=== PATIENT | male | born 1985 | race Caucasian/White ===

== ENCOUNTER 2022-09-01 16:46 | Inpatient (IN) | payer BC ==
[2022-09-01 17:34] VITALS: BMI 19.3
[2022-09-01] MEDS ORDERED: METHOCARBAMOL 500 MG TABLET PO PRN (22:01)
[2022-09-01] MEDS ORDERED: ONDANSETRON *ODT* 4 MG TABLET SL PRN (22:01)
[2022-09-01] MEDS ORDERED: DICYCLOMINE HCL 10 MG CAPSULE PO PRN (22:01)
[2022-09-01] MEDS ORDERED: ACETAMINOPHEN 325 MG TABLET (FP) PO PRN ×2 (22:01)
[2022-09-01] MEDS ORDERED: LOPERAMIDE HCL 2 MG CAPSULE PO PRN (22:01)
[2022-09-01] MEDS ORDERED: BENZONATATE 200 MG CAPSULE PO PRN (22:01)
[2022-09-01] MEDS ORDERED: guaiFENesin 600 MG TABLET.ER (FP) PO PRN (22:01)
[2022-09-01] MEDS ORDERED: MAG HYDROX/AL HYDROX/SIMETH 30 ML UNIT-DOSE CUP PO PRN (22:01)
[2022-09-01] MEDS ORDERED: hydrOXYzine PAMOATE 25 MG CAPSULE (FP) PO PRN (22:01)
[2022-09-01] MEDS ORDERED: NALOXONE HCL (KLOXXADO) 8 MG SPRAY NS PRN (22:01)
[2022-09-01] MEDS ORDERED: POLYETHYLENE GLYCOL (HEALTHYLAX) 3350 17 GM PACKET PO PRN (22:01)
[2022-09-01] MEDS ORDERED: NALOXONE HCL 0.4 MG/ML VIAL IM PRN (22:01)
[2022-09-01] MEDS ORDERED: IBUPROFEN 400 MG TABLET (FP) PO PRN (22:01)
[2022-09-01] MEDS ORDERED: BISMUTH SUBSALICYLATE 524 MG/30 ML PO PRN (22:01)
[2022-09-01] MEDS ORDERED: BENZOCAINE/MENTHOL (CHLORASEPTIC ) LOZENGE MM PRN (22:01)
[2022-09-01] MEDS ORDERED: P-EPHED 60MG/TRIPROLIDI 2.5MG TABLET PO PRN (22:01)
[2022-09-01] MEDS ORDERED: IBUPROFEN 600 MG TABLET (FP) PO PRN (22:01)
[2022-09-01] MEDS ORDERED: MAGNESIUM HYDROX 2400MG/30ML ORAL SUSPENSION 30 ML CUP PO PRN (22:01)
[2022-09-01] MEDS ORDERED: chlordiazePOXIDE HCL 25 MG CAPSULE PO PRN (22:04)
[2022-09-01] MEDS ORDERED: levETIRAcetam 500 MG TABLET (FP) PO ONE (22:11)
[2022-09-01] MEDS: levETIRAcetam 500 MG TABLET (FP) PO SCH (22:14)
[2022-09-01] MEDS: chlordiazePOXIDE HCL 25 MG CAPSULE PO SCH (22:45)
[2022-09-02] MEDS: chlordiazePOXIDE HCL 25 MG CAPSULE PO SCH ×2 (05:22→10:12)
[2022-09-02] MEDS ORDERED: FOLIC ACID 1 MG TABLET (FP) PO SCH (10:00)
[2022-09-02] MEDS ORDERED: NAPROXEN 500 MG TABLET PO SCH (10:00)
[2022-09-02] MEDS: PRENATAL VITAMINS W/ FOLIC ACID TABLET (FP) PO SCH (10:12)
[2022-09-02] MEDS: levETIRAcetam 500 MG TABLET (FP) PO SCH ×2 (10:14→21:59)
[2022-09-02] MEDS: NICOTINE POLACRILEX 2 MG GUM BUC PRN ×4 (10:17→18:30)
[2022-09-02 12:31] LABS: HEMATOCRIT 37.5 % (35.4-49); HEMOGLOBIN 13.1 GM/dL (11.7-16.9); MCH 30.9 pg (25.7-33.7); MCHC 34.8 g/dl (32.0-35.9); MEAN CELL VOLUME 88.7 fl (80-96); MEAN PLT VOLUME 9.5 fl (7.5-11.1); PLATELET COUNT 163 10^3/uL (134-434); RBC 4.23 M/mm3 (4.00-5.60); RDW 14.2 % (11.9-15.9); WHITE BLOOD COUNT 3.3 K/mm3 (4.0-10.0)
[2022-09-02 13:20] LABS: POTASSIUM 3.9 mmol/L (3.5-5.1)
[2022-09-02 13:48] LABS: ALBUMIN 3.9 g/dl (3.4-5.0); BLOOD UREA NITROGEN 16.1 mg/dL (7-18)
[2022-09-02 13:52] LABS: CREATININE 0.7 mg/dL (0.55-1.3)
[2022-09-02 13:53] LABS: BILIRUBIN,TOTAL 1.6 mg/dL (0.2-1); TOT PROT 6.5 g/dl (6.4-8.2)
[2022-09-02] MEDS: diazePAM 5 MG TABLET PO SCH ×2 (17:16→22:01)
[2022-09-02] MEDS: THIAMINE HCL 100 MG TABLET (FP) PO SCH (22:00)
[2022-09-02] MEDS ORDERED: MELATONIN 5 MG TABLETS PO SCH (22:00)
[2022-09-02] MEDS: diphenhydrAMINE HCL 25 MG CAPSULE (FP) PO PRN (22:02)
[2022-09-03] MEDS ORDERED: chlordiazePOXIDE HCL 25 MG CAPSULE PO SCH (05:00)
[2022-09-03] MEDS: diazePAM 5 MG TABLET PO ONE (05:24)
[2022-09-03] MEDS: diazePAM 5 MG TABLET PO SCH ×4 (05:34→22:14)
[2022-09-03] MEDS: levETIRAcetam 500 MG TABLET (FP) PO SCH ×3 (10:11→22:15)
[2022-09-03] MEDS: PRENATAL VITAMINS W/ FOLIC ACID TABLET (FP) PO SCH (10:11)
[2022-09-03] MEDS: NICOTINE POLACRILEX 2 MG GUM BUC PRN (10:52)
[2022-09-03] MEDS: NICOTINE 14 MG/24 HOURS TOPICAL PATCH TD SCH (11:44)
[2022-09-03] MEDS ORDERED: DRONABINOL 2.5 MG CAPSULE PO SCH (12:00)
[2022-09-03] MEDS: DRONABINOL 2.5 MG CAPSULE PO SCH (17:19)
[2022-09-03] MEDS: THIAMINE HCL 100 MG TABLET (FP) PO SCH (22:14)
[2022-09-03] MEDS: diphenhydrAMINE HCL 25 MG CAPSULE (FP) PO PRN (22:16)
[2022-09-04] MEDS ORDERED: chlordiazePOXIDE HCL 10 MG CAPSULE PO PRN
[2022-09-04] MEDS ORDERED: chlordiazePOXIDE HCL 10 MG CAPSULE PO SCH (05:00)
[2022-09-04] MEDS: diazePAM 5 MG TABLET PO SCH ×3 (05:15→22:23)
[2022-09-04] MEDS: levETIRAcetam 500 MG TABLET (FP) PO SCH ×2 (10:05→22:23)
[2022-09-04] MEDS: NICOTINE 14 MG/24 HOURS TOPICAL PATCH TD SCH (10:05)
[2022-09-04] MEDS: PRENATAL VITAMINS W/ FOLIC ACID TABLET (FP) PO SCH (10:05)
[2022-09-04] MEDS: DRONABINOL 2.5 MG CAPSULE PO SCH ×2 (13:06→17:30)
[2022-09-04] MEDS: DEXTROAMPHETAMINE/AMPHETAMINE 10 MG CAP.ER.24H PO SCH (14:53)
[2022-09-04] MEDS: diazePAM 5 MG TABLET PO PRN (17:35)
[2022-09-04] MEDS ORDERED: DEXTROAMPHETAMINE/AMPHETAMINE 10 MG CAP.ER.24H PO SCH (22:00)
[2022-09-04] MEDS: THIAMINE HCL 100 MG TABLET (FP) PO SCH (22:23)
[2022-09-04] MEDS: diphenhydrAMINE HCL 25 MG CAPSULE (FP) PO PRN (22:24)
[2022-09-05] MEDS ORDERED: chlordiazePOXIDE HCL 10 MG CAPSULE PO SCH (05:00)
[2022-09-05] MEDS: diazePAM 5 MG TABLET PO SCH ×2 (05:18→17:48)
[2022-09-05] MEDS: PRENATAL VITAMINS W/ FOLIC ACID TABLET (FP) PO SCH (10:06)
[2022-09-05] MEDS: NICOTINE 14 MG/24 HOURS TOPICAL PATCH TD SCH (10:07)
[2022-09-05] MEDS: levETIRAcetam 500 MG TABLET (FP) PO SCH ×2 (10:07→22:11)
[2022-09-05] MEDS: DEXTROAMPHETAMINE/AMPHETAMINE 10 MG CAP.ER.24H PO SCH (10:07)
[2022-09-05] MEDS: diazePAM 5 MG TABLET PO PRN (10:08)
[2022-09-05] MEDS: DRONABINOL 2.5 MG CAPSULE PO SCH ×2 (11:03→17:48)
[2022-09-05 13:11] VITALS: RESP 18
[2022-09-05] MEDS: NICOTINE POLACRILEX 2 MG GUM BUC PRN (13:18)
[2022-09-05] MEDS: THIAMINE HCL 100 MG TABLET (FP) PO SCH (22:11)
[2022-09-05] MEDS: diphenhydrAMINE HCL 25 MG CAPSULE (FP) PO PRN (22:13)
[2022-09-06] MEDS ORDERED: chlordiazePOXIDE HCL 10 MG CAPSULE PO ONE (05:00)
[2022-09-06] MEDS: diazePAM 5 MG TABLET PO ONE (05:39)
[2022-09-06 09:30] VITALS: BP 145/87; PULSE 86; TEMP 98
[2022-09-06] MEDS: PRENATAL VITAMINS W/ FOLIC ACID TABLET (FP) PO SCH (09:48)
[2022-09-06] MEDS: DEXTROAMPHETAMINE/AMPHETAMINE 10 MG CAP.ER.24H PO SCH (09:49)
[2022-09-06] MEDS: levETIRAcetam 500 MG TABLET (FP) PO SCH (09:49)
[2022-09-06] MEDS: NICOTINE 14 MG/24 HOURS TOPICAL PATCH TD SCH (09:49)
== END 2022-09-06 10:35 | disposition home or self-care (01) | DRG 775 ==
LOC: YASAS 16:46 → Y6N 21:28
PROVIDERS: ADMIT Allergy & Immunology; ATTEND Surgery
PROC: HZ2ZZZZ Detoxification Services for Substance Abuse Treatment (ICD-10-PCS; principal; 2022-09-01)
DX: F10.230 Alcohol dependence with withdrawal, uncomplicated (principal); F17.290 Nicotine dependence, other tobacco product, uncomplicated; F10.282 Alcohol dependence with alcohol-induced sleep disorder; F10.24 Alcohol dependence with alcohol-induced mood disorder; F90.9 Attention-deficit hyperactivity disorder, unspecified type; I10 Essential (primary) hypertension; G47.39 Other sleep apnea; M17.0 Bilateral primary osteoarthritis of knee; R56.9 Unspecified convulsions; U07.0 Vaping-related disorder; R63.4 Abnormal weight loss; Z68.1 Body mass index [BMI] 19.9 or less, adult; Z87.820 Personal history of traumatic brain injury; Z88.0 Allergy status to penicillin; Z88.8 Allergy status to other drugs, medicaments and biological substances
CPT/HCPCS: 36415; 80053; 85027; 86780; C9803-CS; U0003; U0005